=== PATIENT | male | born 1990 | race Two or more races ===

== ENCOUNTER 2021-12-28 23:38 | Emergency (ER) | payer MEDICAID, SELFPAY ==
[2021-12-28 23:53] VITALS: BP 116/71; BP 130/75; PULSE 72; PULSE 74; RESP 18; TEMP 36.6; O2SAT 98; O2SAT 99; BMI 24.2
== END 2021-12-29 02:59 | disposition left against medical advice (07) ==
PROVIDERS: Emergency Provider Emergency Medicine
DX: G25.81 Restless legs syndrome (principal); M79.605 Pain in left leg; M79.604 Pain in right leg; F11.20 Opioid dependence, uncomplicated; F17.200 Nicotine dependence, unspecified, uncomplicated; F12.90 Cannabis use, unspecified, uncomplicated
CPT/HCPCS: 99281; 99282

== ENCOUNTER 2021-12-29 03:30 | Emergency (ER) | payer MEDICAID, SELFPAY ==
[2021-12-29 03:36] VITALS: BP 138/72; PULSE 68; O2SAT 99
[2021-12-29 03:52] VITALS: BP 122/71; PULSE 74; RESP 16; TEMP 36.8; O2SAT 98
[2021-12-29 03:57] VITALS: BP 122/71; PULSE 74; RESP 16; TEMP 36.8; O2SAT 98; BMI 25.2
[2021-12-29 04:14] LABS: COVID-19 Test Negative (Negative)
[2021-12-29 04:17] LABS: Amphetamine Screen Urine Not Detected (Not Detect); Barbiturates, Urine Not Detected (Not Detect); Benzodiazepines Screen Urine Not Detected (Not Detect); Cannabinoid Screen Urine POSITIVE (Not Detect); Cocaine Screen Urine Not Detected (Not Detect); Fentanyl, urine POSITIVE (Not Detect); Opiate Screen Urine POSITIVE (Not Detect); Phencyclidine Screen Urine Not Detected (Not Detect)
--- NOTE | 2021-12-29 05:54 | PC.NURSE ---
pt seen by provider and waiting orders. pt is pacing in the pod, calm and cooperative now that he has his results and a plan.
--- NOTE | 2021-12-29 05:56 | ED_ITS ---
HPI - General Adult General Chief complaint: ETOH/Substance Use Stated complaint: Withdrawals Time Seen by Provider: 12/29/21 05:32 Source: patient Mode of arrival: ambulatory Limitations: no limitations History of Present Illness HPI narrative: 31-year-old male who presents emergency department for evaluation of agitation, restlessness, lightheadedness, body aches, feeling like he is withdrawing from opiates. The patient has a history of opiate use disorder. The patient states that he is been on Suboxone for at least 10 years and denied using any opiates. He states he has been compliant with his Suboxone and does not believe that he has missed any doses He does admit however to buying marijuana from the street as well as gabapentin pills from the street. He states that took his Suboxone yesterday in the morning and then when he took the Suboxone in the evening he felt like he was withdrawing from opiates. He states that he has not been able to sleep. States that his legs are very restless. He states that his body aches. He denied being suicidal or homicidal. Related Data Allergies Allergy/AdvReac Type Severity Reaction Status Date / Time No Known Allergies Allergy Verified 12/29/21 04:18 Review of Systems Review of Systems: Yes all other systems are reviewed and are negative PMFSH Past Medical History [facility], [facility] Narrative: Social history: The patient is homeless and is living in a homeless residential with his family. Smokes 1/2 pack of cigarettes per day times 10 years. He denies alcohol use. He denies using opiates but he luther admit to buying marijuana and gabapentin from Street dealers. Medical History No known health problems Social History Social History Alcohol intake: never Patient Tobacco Use Status: Current everyday Tobacco user Smoked in Last 30 Days: Yes Use of substances other than those prescribed or required for medical reasons: Yes Substance Use Type: Marijuana Substance Use Frequency: Daily Last Used Substance: Just Prior to Admission Any prior treatment program specific to substance use: No Advance Directives: No Physical Exam ED Vital Signs: Vital Signs - 24 hr 12/29/21 03:52 12/29/21 03:57 Temperature 98.2 F 98.2 F Pulse Rate 74 74 Respiratory Rate 16 16 Blood Pressure 122/71 122/71 Pulse Oximetry 98 98 BMI result Body Mass Index 25.2 Const Other: Pleasant, cooperative, male patient he does appear to be anxious but answers all questions appropriately HENMT Head: Yes normal to inspection, Yes normocephalic and Yes atraumatic Ears: external ears normal General nose exam: Normal external nose present Face and sinus: Yes normal facial exam Mouth: Normal oral and palatal mucosa present Throat: Yes posterior oropharynx normal Eyes General: appearance normal, both eyes and all related structures Pupils: Equal, round and reactive pupils present Neck Neck: Yes normal visual inspection, Yes no lymphadenopathy, Yes trachea midline and Yes supple Chest Chest palpation & inspection: normal inspection of the chest and normal palpation of entire chest wall Resp Effort & Inspection: normal respiratory effort and able to speak in complete sentences Auscultation: clear to auscultation bilaterally Cardio Rate: regular rate Rhythm: regular rhythm Heart sounds: S1 normal heart sound present, S2 normal heart sound present and no murmurs GI Inspection: Yes normal to inspection Palpation (GI): Soft to palpation, nontender and no guarding Auscultation: normal bowel sounds General: Yes no CVA tenderness Back/Spine/Pelvis Back: no CVA tenderness Skin General skin exam: no rashes or lesions noted Neuro Cranial nerves: Yes CN's II-XII intact bilaterally and Yes Equal, round and reactive pupils present Cognition (Neuro): normal cognition Motor exam (neuro): 5/5 motor strength present throughout Extrem General: Yes normal to inspection Psych Appearance: grossly normal Speech and movement: Normal speech and movement present Affect: normal affect Attitude: cooperative Thought process: Normal thought process present Thought content: Normal thought content present Course Course Course Narrative: 31-year-old male with history of opiate use disorder who has been on Suboxone for 10 years who presents emergency department with a feeling of agitation, restlessness, insomnia and feeling like he is withdrawing from opiates. The patient states that he has been compliant with his Suboxone but he also has been buying drugs from the street (marijuana and gabapentin). The patient's urine tox screen was positive for fentanyl, opiates and marijuana. The patient's vital signs were unremarkable and his physical examination was unremarkable. At this time, I suspect the patient was not compliant with Suboxone was using opiates, he then restarted his Suboxone when he was not in withdrawal and this precipitated withdrawal. The patient's withdrawal symptoms were treated with ibuprofen 600 mg orally, clonidine 0.3 mg orally and and 2 mg orally. Patient was discharged home. I did advised to restart a Suboxone and to follow-up with a Suboxone clinic. He was given an intranasal nasal take home pack I did discuss the use of this drug with him. Medical Decision Making Lab Data Labs: Lab Results 12/29/21 12/29/21 Range/Units 03:48 03:48 Urine Opiates Screen POSITIVE H (Not Detect) Urine Fentanyl Screen POSITIVE H (Not Detect) Ur Barbiturates Screen Not Detected (Not Detect) Ur Phencyclidine Scrn Not Detected (Not Detect) Ur Amphetamines Screen Not Detected (Not Detect) U Benzodiazepines Scrn Not Detected (Not Detect) Urine Cocaine Screen Not Detected (Not Detect) U Marijuana (THC) Screen POSITIVE H (Not Detect) COVID-19 ([facility]) Negative (Negative) COVID-19 Clin Com See Note Discharge Plan Discharge Clinical Impression: Opiate withdrawal, Restlessness, Anxiety Patient Disposition: Home, Self-Care Instructions: Narcotic Withdrawal (ED) Additional Instructions: At this time I do not have a clear cause for your symptoms but I suspect that you may be withdrawing from opiates. Any drugs that you buy on the street including heroin, cocaine, marijuana or pills such as gabapentin, Percocet or Vicodin will contain fentanyl and even 1 pill can cause you to overdose and . Therefore you should avoid any street drugs. If you stop using Suboxone and use street drugs, when you restart Suboxone this will cause withdrawal symptoms. This is why any time we start someone on Suboxone we make sure they are in withdrawal before we give them a dose of Suboxone, otherwise we causes in the withdrawal from opiates. Your are being discharged home with intranasal Narcan. If you are going to continue to use street drugs, you should make sure that there is a sober person with you that is not using drugs and that this person can administer intranasal Narcan in the event that you stop breathing. Follow-up with your doctor in 2 days. Please return to the emergency department if your symptoms get worse or if you develop any symptoms that are concerning to you.
[2021-12-29] MEDS: Ibuprofen 600 MG TABLET PO (06:23)
[2021-12-29] MEDS: LORazepam 1 MG TABLET 2 MG PO (06:24)
[2021-12-29] MEDS: Naloxone HCl Nasal TAKE HOME 4 MG SPRAY NOSTRILALT (06:24)
[2021-12-29] MEDS: cloNIDine HCL 0.1 MG TABLET 0.3 MG PO (06:24)
== END 2021-12-29 07:16 | disposition home or self-care (01) ==
PROVIDERS: Emergency Provider Emergency Medicine Emergency Medical Services
DX: F11.13 Opioid abuse with withdrawal (principal); F41.1 Generalized anxiety disorder; F43.0 Acute stress reaction; Z20.822 Contact with and (suspected) exposure to COVID-19; Z59.00 Homelessness unspecified; Z79.899 Other long term (current) drug therapy
CPT/HCPCS: 80307; 87635; 99284